=== PATIENT | male | born 1950 | race Hispanic/Latino ===

== ENCOUNTER 2020-04-04 18:55 | Emergency (ER) | payer MEDICARE ==
[~2020-04-04] VITALS: Ht 175.3 cm; Wt 109.3 kg
--- OUTSIDE RECORDS SUMMARY | 2020-04-04 18:57 | XMS REPORT | Clinical Summary ---
Author Author [facility] Organization [facility] Address Unknown Phone Unavailable Care Team Providers [employer] Analyst Name Role Phone PCP Unavailable Allergies Comments Active Allergy Reactions Severity Noted Date No latex allergy No Known Allergies 11/15/2008 Medications End Date Status Medication Sig Dispensed Refills Start Date Active hydrochlorothiazide Take 0.5 90 tablet 3 (HYDRODIURIL) 25 mg tablets by 6 tabletIndications: mouth daily. Essential hypertension Active lisinopril (PRINIVIL) 5 Take 1 tablet 90 tablet 2 mg tabletIndications: by mouth 6 Essential hypertension daily. Active metFORMIN (GLUCOPHAGE) Take 1 tablet 180 tablet 0 0 500 mg tabletIndications: by mouth 2 6 Controlled type 2 times daily diabetes with neuropathy (with meals) Needs appt and labs. Active ammonium lactate Apply to 500 g 6 (LAC-HYDRIN) 12 % affected area 6 lotionIndications: Dry (on dry feet) skin 2 times daily Active ketoconazole (NIZORAL) 2 Apply to 30 g 1 0 % topical affected area 6 creamIndications: Tinea 2 times daily pedis of both feet as directed Active blood glucose Use as 1 Kit 0 meterIndications: directed.. 6 Controlled type 2 diabetes with neuropathy Active lancetsIndications: Check blood 50 Each 3 Controlled type 2 glucose 2 6 diabetes with neuropathy times weekly Active blood glucose test Check blood 50 Each 3 01 stripsIndications: glucose 2 6 Controlled type 2 times weekly diabetes with neuropathy Active Problems Problem Noted Date Foot ulcer- 1cm 2 mmX1cm 2mm ; depth 2mm ; rt foot 5t h metatarsal head ; 12/24/2013 edema legs kishore /feet kishore 1+ ; dry skin + ; onychomycosis + nails Iron deficiency anemia, unspecified 12/09/2013 GERD (gastroesophageal reflux disease) 11/26/2013 Cataract 10/18/2013 Penile cancer 10/18/2013 CKD (chronic kidney disease) stage 3, GFR 30-59 04/2013 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, now Sp 09/02/2013 bilateral ILND; kishore chr leg edema -12/10 -improved HTN (hypertension) 07/10/2013 Diabetic neuropathy 08/07/2012 Traumatic amputation of toe(s) (complete) (partial), without mention of 08/07/2012 complication Vision disturbance- has appt at [facility] in Nov 201207/14 Anemia-iron def 07/14/2012 Obesity 07/14/2012 Neuropathy-has appt with podiatry 07/14/2012 Microalbuminuria 07/14/2012 Diabetes mellitus as of 11/2013-Diabetes mellitus- lupillo l continue for now 07/02/2012 metformin as sugars are controlled ; frank rderline ckd Immunizations Name Administration Dates Next Due Influenza Vaccine 09/28/2013 (Deferred: Beverley nt Refused), 08/07/2012 PPV 23 Pneumococcal 06/12/2012 Polysaccaride Family History Medical History Relation Name Comments Heart Father Psychiatry Mother Relation Name Status Comments Father Heart (Age 70) Mother suicide Social History Date Tobacco Use Types Packs/Day Years Used Former Smoker Smokeless Tobacco: Never Used Tobacco Cessation: Counseling Given: No Comments: quit 25 years ago Drinks/Week oz/Week Comments Alcohol Use No Sex Assigned at Date Recorded Not on file Industry Job Start Date Occupation Not on file Not on file Not on file Travel End Travel History Travel Start No recent travel history available. Last Filed Vital Signs Not on file Plan of Treatment Health Maintenance Due Date Last Done Comments Colorectal Cancer Scrn 1998 Annual (FIT/FOBT) Age 50 to 75 DM Foot Exam (Yearly) 08/31/2014 08/31/2013, 1205/2012, 06/12/2012 DM Retinal Exam (Yearly) 04/18/2015 04/18/2014, 0 12/16/2012 (Previously completed - External), 06/16/2012 DM HGBA1C (Yearly) 06/24/2015 06/24/2014, 014, 02/28/2014, Additional history exists IMM Pneumococcal Age 63 Addressed 06/12/2012 Overri dden with the and Up intention of not completing the topic Results Not on fileafter 04/04/2019 Insurance Type Payer Benefit Subscriber ID Effective Phone Address Plan / Dates Group [employer] HMO [employer] xxxxxxxxx 2014-[place] [address] [id number] [place] [address] [place] MED[place] [id number] xxxxxxxxx 2015-P [phone] [id number] MEDICARE [place], [place] BENEFICIAR [id number] Y Advance Directives Date Inactivated Comments Code Status Date Activated 11/26/2013 5:00 PM Full Code 11/23/2013 1:02 AM 09/29/2013 7:28 PM Full Code 09/22/2013 10:39 PM 09/22/2013 10:39 PM Full Code 09/09/2013 8:48 PM 07/14/2013 8:10 PM Full Code 07/07/2013 11:53 PM 04/13/2013 8:59 PM Full Code 04/07/2013 11:57 AM
[2020-04-04] MEDS ORDERED: HYDROCODONE/APAP 5MG-325MG TAB PO ONE (19:45)
--- NOTE | 2020-04-04 21:25 | Diagnostic Imaging Report ---
EXAM: CT Abdomen and Pelvis WITHOUT contrast INDICATION: ^LEFT FLANK PAIN ^[id number] ^2032 COMPARISON: None. TECHNIQUE: Abdomen and pelvis were scanned utilizing a multidetector helical scanner from the lung base to the pubic symphysis without administration of IV contrast. Absence of intravenous contrast decreases sensitivity for detection of focal lesions and vascular pathology. Coronal and sagittal reformations were obtained. Routine protocol was performed. IV CONTRAST: None ORAL CONTRAST: None COMPLICATIONS: None RADIATION DOSE: Total DLP: 1423.45 mGy*cm Estimated effective dose: (DLP x 0.015 x size factor) mSv CTDIvol has been reviewed. It is below the limits set by the Radiation Protocol Committee (RPC). FINDINGS: LINES and TUBES: None. LOWER THORAX: Partially seen atherosclerotic calcification of coronary arteries. Trace pericardial fluid. HEPATOBILIARY: Unenhanced liver is unremarkable. No biliary ductal dilation. GALLBLADDER: Cholelithiasis. No wall thickening. SPLEEN: No splenomegaly. PANCREAS: No focal masses or ductal dilatation. ADRENALS: No adrenal nodules KIDNEYS/URETERS: No hydronephrosis. Limited for evaluation of renal parenchyma without intravenous contrast. 3 mm left inferior pole calculus. Subcentimeter left inferior pole hypodensity is probably a cyst. GI TRACT: No abnormal distention, wall thickening, or evidence of bowel obstruction. Appendix is normal. PELVIC ORGANS/BLADDER: Unremarkable. LYMPH NODES: No lymphadenopathy. VESSELS: Unremarkable. PERITONEUM / RETROPERITONEUM: No free air or fluid. BONES: Unremarkable. SOFT TISSUES: Unremarkable. IMPRESSION: 1. Subcentimeter left renal inferior pole calculus. No evidence of obstructive urolithiasis. 2. Cholelithiasis without CT evidence of cholecystitis. Signed by: Dr. Lance Tanner MD on 04/04/2020 9:22 PM
--- NOTE | 2020-04-04 21:40 | Emergency Department Note ---
History of Present Illnes History of Present Illness Chief Complaint: Back Pain History of Present Illness This is a 69 year old male . Historian: Patient, Family Member Arrival Mode: Car Onset (how long ago): day(s) (2) Location: LEFT FLANK Quality: SHARP PAIN Radiation: Denies non-radiation, Denies back, Denies neck, Denies extremity, Denies abdomen, Denies periumbilical, Denies flank, Denies proximal, Denies distal, Denies other Severity: moderate Onset quality: gradual Duration (how long): day(s) (3) Timing of current episode: intermittent Progression: waxing and waning Chronicity: new Context: Denies recent illness, Denies recent surgery, Denies recent immobilization, Denies recent travel, Denies trauma/injury, Denies new medications, Denies hx of DVT/PE, Denies non-compliance w/ medications, Denies other Relieving factors: none Exacerbating factors: none Associated symptoms: Reports denies other symptoms Past Medical/Family History Physician Review I have reviewed the patient's past medical and family history. Any updates have been documented here. Past Medical History Recent Fever: No Clinical Suspicion of Infectio: No New/Unexplained Change in Ment: No Past Medical History: Hypertension, Diabetes Other Surgery: PENIS SURG X2, BILAT LYMPH SURG. TO GROIN Social History Smoking Cessation: Never Smoker Alcohol Use: None Any Illegal Drug Use: No TB Exposure/Symptoms: No Physically hurt or threatened: No Other Any Pre-Existing Lines (PICC,: No Is patient up to date on immun: No Last Flu: NONE Last Pneumovax: 5YRS AGO Review of Systems Review of Systems Constitutional: Reports no symptoms EENTM: Reports no symptoms Cardiovascular: Reports no symptoms Respiratory: Reports no symptoms Gastrointestinal: Reports as per HPI Genitourinary: Reports as per HPI Musculoskeletal: Reports no symptoms Integumentary: Reports no symptoms Neurological: Reports no symptoms Psychological: Reports no symptoms Endocrine: Reports no symptoms Hematological/Lymphatic: Reports no symptoms Review of other systems All other systems reviewed and negative. Physical Exam Related Data Allergies: Coded Allergies: No Known Allergies (Unverified , 04/04/20) Triage Vital Signs Vital Signs Date Time Temp Pulse Resp B/P (MAP) Pulse Ox O2 Delivery O2 Flow Rate FiO2 04/04/20 19:45 98.8 60 16 174/77 99 Vital signs reviewed: Yes Physical Exam CONSTITUTIONAL Constitutional: Reports well-developed, Reports well-nourished HENT HENT: Reports normocephalic, Reports atraumatic, Reports oropharynx clear/moist, Reports nose normal HENT L/R: Reports left ext ear normal, Reports right ext ear normal EYES Eyes: Reports PERRL, Reports conjunctivae normal NECK Neck: Reports ROM normal PULMONARY Pulmonary: Reports effort normal, Reports breath sounds normal CARDIOVASCULAR Cardiovascular: Reports regular rhythm, Reports heart sounds normal, Reports capillary refill normal, Reports normal rate GASTROINTESTINAL Abdominal: Reports soft, Reports nontender (FLANK LEFT), Reports bowel sounds normal, Reports tender GENITOURINARY Genitourinary: Reports exam deferred SKIN Skin: Reports warm, Reports dry MUSCULOSKELETAL Musculoskeletal: Reports ROM normal NEUROLOGICAL Neurological: Reports alert, Reports oriented x 3, Reports no gross motor or sensory deficits PSYCHOLOGICAL Psychological: Reports mood/affect normal, Reports judgement normal Results Laboratory Lab results reviewed: Yes Imaging Imaging results reviewed: Yes Assessment & Plan Medical Decision Making MDM UROLETHIASIS DIVERTICULITIS RADICULOPATHY Reassessment Reassessment time: 21:39 Reassessment IMPROVED Assessment & Plan Final Impression: (1) Renal colic (2) Renal colic on left side (3) Kidney stone (4) Gall stones Depart Disposition: HOME, SELF-CARE Last Vital Signs Date Time Temp Pulse Resp B/P (MAP) Pulse Ox O2 Delivery O2 Flow Rate FiO2 04/04/20 19:45 98.8 60 16 174/77 99 Medications in the ED Acetaminophen/ Hydrocodone Bitart 1 ea ONCE ONCE PO ; Start 04/04/20 at 19:45; Stop 04/04/20 at 19:46; Status GUSTAVO SMITH MD Apr 04, 2020 21:40
[2020-04-04 21:54] VITALS: BP 169/78
== END 2020-04-04 21:53 | disposition home or self-care (01) ==
LOC: FSED 18:55
DX: M54.5 Low back pain (principal); N20.0 Calculus of kidney; K80.80 Other cholelithiasis without obstruction; I10 Essential (primary) hypertension; E11.9 Type 2 diabetes mellitus without complications
CPT/HCPCS: 74176; 80053; 81003; 85025; 99283